=== PATIENT | male | born 1955 | race Caucasian/White ===

== ENCOUNTER → 2022-09-04 11:58 | Outpatient (BNVA) | payer OTHER, SELFPAY | PROVIDERS: PCP Physician Assistant; Visit Provider Nurse Practitioner Family | DX: Z01.818 Encounter for other preprocedural examination (principal) | CPT/HCPCS: 99202 ==

== ENCOUNTER 2023-07-09 07:48 | Day surgery (SDC) | payer OTHER, SELFPAY ==
--- NOTE | 2023-07-06 12:10 | HO.ANESPROP2 ---
Documented by User: Luda Castañeda NP 07/06/23 12:11 HPI - Anesthesia Eval Consult details Narrative: 67yo M for Colonoscopy [facility] Past Medical History Medical History (Updated 09/04/22 @ 12:35 by Ollie Tavarez) Back pain with history of spinal surgery Family History Family History (Updated 09/04/22 @ 12:33 by Ollie Tavarez) Brother High cholesterol Brother High cholesterol Sister High cholesterol Sister High cholesterol Sister High cholesterol Sister High cholesterol Surgical History Surgical History (Updated 09/04/22 @ 12:35 by Ollie Tavarez) Hx of neck surgery Social History Social History (Updated 09/04/22 @ 12:30 by Ollie Tavarez) Household Members: Significant Other Alcohol intake: current Alcohol intake frequency: holidays/special occasions only Patient Tobacco Use Status: Current everyday Tobacco user Tobacco use type: Cigarette Cigarette Packs Per Day: 0.5 Cigarettes Per Day: 10.0 Second Hand Smoke Exposure: No Use of substances other than those prescribed or required for medical reasons: No Advance Directives: No Advance Directives Information Provided: Yes Advance Directives on File: No Meds Allergies Allergy/AdvReac Type Severity Reaction Status Date / Time Penicillins [PENICILLINS] Allergy Severe SEVERE Unverified 09/04/22 12:37 SWELLING ,DIFF BREATHING Assessment and Plan Assessment Anesthesia Assessment: Chart Reviewed Documented by User: Lidia Sharma MD 07/09/23 09:19 [facility] Past Medical History Medical History (Updated 09/04/22 @ 12:35 by Ollie Tavarez) Back pain with history of spinal surgery Family History Family History (Updated 09/04/22 @ 12:33 by Ollie Tavarez) Brother High cholesterol Brother High cholesterol Sister High cholesterol Sister High cholesterol Sister High cholesterol Sister High cholesterol Family history of problems with anesthesia: No Surgical History Surgical History (Updated 09/04/22 @ 12:35 by Ollie Tavarez) Hx of neck surgery History of Problems with Anesthesia: No Social History Social History (Updated 09/04/22 @ 12:30 by Ollie Tavarez) Household Members: Significant Other Alcohol intake: current Alcohol intake frequency: holidays/special occasions only Patient Tobacco Use Status: Current everyday Tobacco user Tobacco use type: Cigarette Cigarette Packs Per Day: 0.5 Cigarettes Per Day: 10.0 Second Hand Smoke Exposure: No Use of substances other than those prescribed or required for medical reasons: No Advance Directives: No Advance Directives Information Provided: Yes Advance Directives on File: No Meds Allergies Allergy/AdvReac Type Severity Reaction Status Date / Time Penicillins [PENICILLINS] Allergy Severe SEVERE Unverified 09/04/22 12:37 SWELLING ,DIFF BREATHING Exam Airway Mallampati Class: II (one broken tooth, denies anything loose) TM Dist: >3cm Neck ROM: Full Heart: rrr Lungs: cts Assessment and Plan Assessment Anesthesia Assessment: Anesthesia Plan Discussed Final Anesthetic Review Family History of Problems with Anesthesia: No History of Problems with Anesthesia: No NPO: Yes ASA Class: II Final Preanesthetic Review: No Changes in Pt Med Stat, Meds/Allgs Chart Reviewed and Consent Obtained/Reviewed Patient Risk: Intermediate Procedure Risk: Intermediate Anesthetic Plan Anesthetic Plan: MAC: Disposition: Standard PACU
--- NOTE | 2023-07-09 08:43 | MHC.SHP ---
Pre-Procedural Eval Section A Date of Service: 07/09/23 The patient is an INPATIENT: No The History & Physical has been completed within 30 days and I have reviewed it.: No Section B Chief Complaint: Colon cancer screening Relevant Family History (Specify if Yes): No Relevant Social History: Tobacco Use Present Medications: see Short Stay Collaborative assessment Medical History: Significant History (Back pain with history of spinal surgery) History of Previous Operations: Relevant previous surgery/procedure and date(s) (History of neck and spinal surgery) Allergies: Allergies Allergy/AdvReac Type Severity Reaction Status Date / Time Penicillins [PENICILLINS] Allergy Severe SEVERE Unverified 09/04/22 12:37 SWELLING ,DIFF BREATHING Review of Systems Sugical H&P ROS: Negative: Constitution, Cardiovascular, Respiratory and Gastrointestinal Exam Surgical H&P Exam: Normal: Heart, Normal: Lungs, Normal: Extremities and Normal: Abdomen Plan Diagnosis/Plan: Unchanged I have reviewed the history and physical and performed a pertinent physical examination on my patient. No changes have occurred unless specified. Time Spent With Patient Time: Total time managing care of this patient today ____ minutes.
[2023-07-09 09:15] VITALS: BMI 24.7
[2023-07-09 09:20] VITALS: BP 142/69; PULSE 61; RESP 16; TEMP 36.4; O2SAT 96
--- NOTE | 2023-07-09 09:21 | W.PM.OPN ---
Operative Note Operative Note Date of Service: 07/09/23 Narrative: COLONOSCOPY TILL CECUM WITH BIOPSIES AND SNARE POLYPECTOMY Pre-op diagnosis: Surveillance of colon polyps Post-op diagnosis:? Colon polyps, diverticulosis, hemorrhoids Endoscopist:? Claudia León MD Anesthesia:?MAC Consent: Indications for the procedure and potential complications of bleeding, perforation, reaction to medications and missed diagnosis were discussed with the patient and informed consent was obtained. Instrument: Olympus CF H 190 L variable stiffness adult colonoscope Monitoring: Vital signs and clinical assessment, intermittent blood pressure monitoring, continuous EKG monitoring, Pulse oximetry and Carbon Dioxide monitoring were done throughout the procedure. Please see anesthesia flowsheet. Colon withdrawl time was 20 minutes. Procedure: The patient was placed in the left lateral decubitis position and pre-procedure medications were administered. After a digital rectal examination of the ano-rectum, the video colonoscope was inserted into the rectum and advanced through the colon to the cecum. The colonoscope was slowly withdrawn in a retrograde panoramic fashion and the colon mucosa was carefully examined including a retroflexed view of the rectum. Findings and interventions are described below. Procedure Difficulty: Without difficulty Findings: Terminal Ileum: Not evaluated Cecum: A 7-8 mm sessile polyp - removed with a hot snare Ascending Colon: A 7-8 mm sessile polyp in the mid AC - removed with a hot snare Transverse Colon: A 6-7 mm sessile polyp - removed with a cold bx Descending Colon: Moderate diverticulosis Sigmoid Colon: A 7-8 mm sessile polyp - removed with cold biopsy Moderate diverticulosis Rectum: Two 7-8 mm sessile polyp seen on retroflexed exam. Both polyps were removed with a hot snare. Ano-rectum: Moderate internal hemorrhoids Colon preparation: Good Impression and Post Procedure Diagnosis: Colonoscopy Findings: Six small polyps removed Moderate diverticulosis seen in the left colon Moderate hemorrhoids on retroflexed exam. Plan: I will send a letter with pathology results Repeat Colonoscopy interval based on path results - in 3-5 years if polyps are adenomatous and 10 years if polyps are hyperplastic. Colon polyps and diverticulosis handouts were given in the discharge area
[2023-07-09 10:02] VITALS: BP 111/54; PULSE 60; RESP 16; TEMP 36.6; O2SAT 95
[2023-07-09 10:18] VITALS: BP 101/65; PULSE 66; RESP 18; O2SAT 96
[2023-07-09 10:33] VITALS: BP 150/69; PULSE 64; RESP 14; TEMP 36.6; O2SAT 96
== END 2023-07-09 10:45 | disposition home or self-care (01) ==
PROVIDERS: PCP Physician Assistant; Visit Provider Internal Medicine Gastroenterology
PROC: 0DJD8ZZ Inspection of Lower Intestinal Tract, Via Natural or Artificial Opening Endoscopic (ICD-10-PCS; CPT 45378; principal; 2023-07-09 09:20)
DX: Z12.11 Encounter for screening for malignant neoplasm of colon (principal); D12.2 Benign neoplasm of ascending colon; K62.1 Rectal polyp; K57.30 Diverticulosis of large intestine without perforation or abscess without bleeding; K64.8 Other hemorrhoids; F17.210 Nicotine dependence, cigarettes, uncomplicated
CPT/HCPCS: 45385; 45380; 88305; J2704

== ENCOUNTER → 2023-07-09 07:48 | Outpatient (BNV) | payer OTHER, SELFPAY | PROVIDERS: PCP Physician Assistant; Visit Provider Internal Medicine Gastroenterology | DX: Z12.11 Encounter for screening for malignant neoplasm of colon (principal); Z86.010 Personal history of colon polyps; D12.2 Benign neoplasm of ascending colon; K63.5 Polyp of colon; K64.8 Other hemorrhoids | CPT/HCPCS: 45380; 45385 ==